=== PATIENT | male | born 1995 | race Caucasian/White ===

== ENCOUNTER 2017-12-15 20:50 | Emergency (ER) | payer OTHER ==
[~2017-12-15] VITALS: Ht 180.3 cm; Wt 76.7 kg
[2017-12-15 20:53] VITALS: TEMP 37.3; Ht 180.3 cm; Wt 76.7 kg
[2017-12-15] MEDS ORDERED: METH10TA4 PO (21:02)
[2017-12-15] MEDS ORDERED: CNC/27 PO (21:02)
[2017-12-15] MEDS ORDERED: AMOXICILLIN 250 MG CAP PO STA ×2 (21:19)
[2017-12-15] MEDS ORDERED: AMX500 PO (21:20)
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
[2017-12-15] MEDS ORDERED: AMOXICILLIN HOME PACK 250 MG/TAB PO ONE (21:31)
[2017-12-15 21:47] VITALS: BP 154/87; PULSE 84; O2SAT 95
== END 2017-12-15 21:50 | disposition home or self-care (01) ==
LOC: C.EDB 20:51 → C.EDD 21:50
DX: S01.511A Laceration without foreign body of lip, initial encounter (principal); Y04.0XXA Assault by unarmed brawl or fight, initial encounter